=== PATIENT | male | born 1995 | race Caucasian/White ===

== ENCOUNTER 2020-03-17 11:50 | Emergency (ER) | payer OTHER ==
[~2020-03-17] VITALS: Ht 195.6 cm; Wt 85.9 kg
[~2020-03-17 11:50] MED LIST: SINGULAIR
[2020-03-17 11:53] VITALS: BP 134/74
--- NOTE | 2020-03-17 11:58 | NUR ---
PT AMBULATED TO THE ROOM FROM TRIAGE W/ A STEADY GAIT.
== END 2020-03-17 11:57 | disposition home or self-care (01) ==
LOC: ED 11:50
DX: S09.90XA Unspecified injury of head, initial encounter (principal); F10.129 Alcohol abuse with intoxication, unspecified; Y90.9 Presence of alcohol in blood, level not specified; Y08.89XA Assault by other specified means, initial encounter; Y93.89 Activity, other specified; Y92.488 Other paved roadways as the place of occurrence of the external cause; Y99.8 Other external cause status
CPT/HCPCS: 99281